=== PATIENT | male | born 1935 | race Caucasian/White ===

== ENCOUNTER 2018-09-22 08:06 | Day surgery (SDC) | payer MEDICARE ==
[~2018-09-22] VITALS: Ht 165.1 cm; Wt 63.6 kg
[2018-09-22] MEDS ORDERED: SODIUM CHLORIDE 0.9% 1,000 ML IV SCH ×2 (08:55→09:00)
[2018-09-22] MEDS ORDERED: LIDOCAINE 1%, 20ML ONE (09:05)
[2018-09-22 09:19] VITALS: BP 142/68
[2018-09-22 09:24] LABS: BASOPHILS # (AUTO) 0.02 x10^3/uL (0-0.1); BASOPHILS % (AUTO) 0 % (0-1); EOSINOPHILS # (AUTO) 0.15 x10^3/uL (0-0.4); EOSINOPHILS % (AUTO) 3 % (1-7); LYMPHOCYTES # (AUTO) 0.92 x10^3/uL (1-3.4); LYMPHOCYTES % (AUTO) 18 % (22-44); MD NO; MEAN CORPUSCULAR HEMOGLOBIN 31.8 pg (27.5-34.5); MEAN CORPUSCULAR HGB CONC 33.4 g/dL (33.2-36.2); MEAN CORPUSCULAR VOLUME 95.2 fL (81-97); MEAN PLATELET VOLUME 6.8 fL (7.4-10.4); MONOCYTES # (AUTO) 0.36 x10^3/uL (0.2-0.8); MONOCYTES % (AUTO) 7 % (2-9); NEUTROPHILS # (AUTO) 3.53 x10^3/uL (1.8-6.8); NEUTROPHILS % (AUTO) 71 % (42-75); PLATELET COUNT 186 x10^3/uL (130-400); RED BLOOD COUNT 3.72 x10^6/uL (4.38-5.82); RED CELL DISTRIBUTION WIDTH 13.9 % (9.4-14.8)
[2018-09-22] MEDS ORDERED: LEVO112T4 PO (09:28)
[2018-09-22] MEDS ORDERED: ATOR20TA37 PO (09:28)
[2018-09-22] MEDS ORDERED: ASPI-496 PO (09:28)
[2018-09-22] MEDS ORDERED: METF500T17 PO (09:28)
[2018-09-22] MEDS ORDERED: ENAL2.5T PO (09:28)
[2018-09-22] MEDS ORDERED: RIVA15TA PO (09:29)
[2018-09-22] MEDS ORDERED: PLEASE ENTER HEIGHT AND WEIGHT MC SCH (09:30)
[2018-09-22] MEDS ORDERED: PLEASE ENTER ALLERGIES MC SCH (09:30)
[2018-09-22 09:34] LABS: PROTHROMBIN TIME 10.5 Seconds (9.6-11.5)
[2018-09-22 09:35] LABS: ALANINE AMINOTRANSFERASE 26 U/L (12-78); ANION GAP 8 mmol/L (5-15); CALCIUM 8.7 mg/dL (8.5-10.1); CHLORIDE 110 mmol/L (98-107)
[2018-09-22 09:37] LABS: ALKALINE PHOSPHATASE 57 U/L (45-117); BILIRUBIN,TOTAL 0.5 mg/dL (0.2-1.0)
[2018-09-22] MEDS ORDERED: INSU100I13 SC (09:45)
[2018-09-22] MEDS ORDERED: HUMALOG SC (09:45)
[2018-09-22] MEDS ORDERED: FENTANYL PF 250 MCG/5ML ONE (09:49)
[2018-09-22] MEDS ORDERED: LIDOCAINE-MPF 2% ,5ML ONE (09:50)
[2018-09-22] MEDS ORDERED: ONDANSETRON 2MG/ML, 2ML ONE (09:50)
[2018-09-22] MEDS ORDERED: DEXAMETHASONE 4 MG/ML, 1ML ONE (09:50)
[2018-09-22] MEDS ORDERED: PROPOFOL 10 MG/ML, 20ML ONE ×2 (09:50)
[2018-09-22] MEDS ORDERED: ROCURONIUM 10MG/ML,5ML ONE (09:51)
[2018-09-22] MEDS ORDERED: SUCCINYLCHOLINE 20 MG/ML, 10ML ONE (09:51)
[2018-09-22] MEDS ORDERED: ACETAMINOPHEN 325 MG TABLET PO PRN ×2 (11:30→12:00)
[2018-09-22] MEDS ORDERED: MORPHINE SULFATE 4 MG/ML, 1ML IVPush PRN (12:00)
[2018-09-22] MEDS ORDERED: FENTANYL PF 100 MCG/2ML IV PRN (12:00)
[2018-09-22] MEDS ORDERED: LABETALOL 5MG/ML, 20ML IV PRN (12:00)
[2018-09-22] MEDS ORDERED: OXYcodone 5 MG/5 ML ORAL.SOL UDC PO PRN (12:00)
[2018-09-22] MEDS ORDERED: MIDAZOLAM 1 MG/ML, 2ML IV PRN (12:00)
[2018-09-22] MEDS ORDERED: MEPERIDINE/PF 25MG/0.5ML IVPush PRN (12:00)
[2018-09-22] MEDS ORDERED: ALBUTEROL SULFATE 2.5 MG/3 ML NPPB PRN (12:00)
[2018-09-22] MEDS ORDERED: PROMETHAZINE 12.5 MG SUPP PR PRN (12:00)
[2018-09-22] MEDS ORDERED: EPHEDRINE 50 MG/ML, 1ML IVPush PRN (12:00)
[2018-09-22] MEDS ORDERED: DIAZEPAM 5 MG/ML, 2ML IVPush PRN (12:00)
[2018-09-22] MEDS ORDERED: PROMETHAZINE 25 MG/ML, 1ML IV PRN (12:00)
[2018-09-22] MEDS ORDERED: hydrALAzine 20 MG/ML, 1ML IV PRN (12:00)
[2018-09-22] MEDS ORDERED: ONDANSETRON 2MG/ML, 2ML IV PRN (12:00)
[2018-09-22] MEDS ORDERED: HYDROmorphone 2 MG/ML, 1ML IVPush PRN (12:00)
[2018-09-22] MEDS ORDERED: ONDANSETRON ODT 8 MG PO PRN (12:00)
[2018-09-22] MEDS ORDERED: OXYcodone 5 MG/5 ML ORAL.SOL UDC ONE (12:03)
[2018-09-22] MEDS ORDERED: RIVAROXABAN 15 MG TABLET PO SCH (13:00)
[2018-09-22] MEDS ORDERED: ASPIRIN 81 MG TABLET EC PO SCH (13:00)
[2018-09-22] MEDS ORDERED: INSULIN GLARGINE 100 UNITS/ML, PEN HOMEINJ SCH (21:00)
[2018-09-22] MEDS ORDERED: metFORMIN 500 MG TABLET PO SCH (21:00)
[2018-09-22] MEDS ORDERED: ATORVASTATIN 20 MG TABLET PO SCH (21:00)
[2018-09-22] MEDS ORDERED: ENALAPRIL 2.5MG TABLET PO SCH (21:00)
[2018-09-23] MEDS ORDERED: RIVAROXABAN 15 MG TABLET PO SCH ×2 (09:00)
[2018-09-23] MEDS ORDERED: ASPIRIN 81 MG TABLET EC PO SCH (09:00)
[2018-09-23] MEDS ORDERED: LEVOTHYROXINE 112 MCG TABLET PO SCH (09:00)
== END 2018-09-22 16:35 | disposition home or self-care (01) ==
LOC: CACL 08:06 → 5SO 13:12 → CACL 16:35
PROVIDERS: ATTEND Internal Medicine Cardiovascular Disease
DX: I48.92 Unspecified atrial flutter (principal); E11.22 Type 2 diabetes mellitus with diabetic chronic kidney disease; I12.9 Hypertensive chronic kidney disease with stage 1 through stage 4 chronic kidney disease, or unspecified chronic kidney disease; N18.9 Chronic kidney disease, unspecified; E11.9 Type 2 diabetes mellitus without complications; I49.9 Cardiac arrhythmia, unspecified; I35.9 Nonrheumatic aortic valve disorder, unspecified; I10 Essential (primary) hypertension; I25.10 Atherosclerotic heart disease of native coronary artery without angina pectoris; Z79.899 Other long term (current) drug therapy; Z79.01 Long term (current) use of anticoagulants; Z79.82 Long term (current) use of aspirin; Z79.4 Long term (current) use of insulin
CPT/HCPCS: 36415; 80053; 85025; 85610; 85730; 93613; 93621; 93653; C1730; C1731; C1732; C1894; J0330; J1100; J2405; J2704; J3010; G0378

== ENCOUNTER 2020-09-03 17:18 | Emergency (ER) | payer MEDICARE ==
[~2020-09-03] VITALS: Ht 165.1 cm; Wt 71.0 kg
[~2020-09-03 17:18] MED LIST: ASPI-496 PO; ATOR20TA37 PO; ENAL2.5T8 PO; HUMALOG SC; INSU100I13 SC; LEVO112T4 PO; METF500T17 PO; RIVA15TA PO
--- NOTE | 2020-09-03 18:00 | NUR ---
PT AMBULATED TO ROOM FROM TRIAGE. PT STATED THAT HE WAS TAKING A NAP AND WOKE UP FEELING LIKE HIS HEART WAS RACING. PT HAS A HISTORY OF A FIB WITH AN ABLATION 2 YEARS AGO. PT STATED THAT HE FELT LIKE THIS OCCASIONALLY PRIOR TO HIS ABLATION, BUT THIS IS THE FIRST TIME HE HAS FELT THIS SINCE. PT DENIES ANY CP, SOB, DIZZINESS OR LIGHTHEADEDNESS.
[2020-09-03 18:11] LABS: BASOPHILS % (AUTO) 1 % (0-1); EOSINOPHILS % (AUTO) 3 % (1-7); LYMPHOCYTES % (AUTO) 25 % (22-44); MEAN CORPUSCULAR HEMOGLOBIN 32.8 pg (27.5-34.5); MEAN CORPUSCULAR HGB CONC 34.7 g/dL (33.2-36.2); MEAN PLATELET VOLUME 7.2 fL (7.4-10.4); MONOCYTES % (AUTO) 8 % (2-9); NEUTROPHILS % (AUTO) 63 % (42-75); PLATELET COUNT 138 x10^3/uL (130-400); RED BLOOD COUNT 3.37 x10^6/uL (4.38-5.82); RED CELL DISTRIBUTION WIDTH 13.1 % (9.4-14.8)
[2020-09-03 18:20] LABS: ALANINE AMINOTRANSFERASE 25 U/L (12-78); ALBUMIN 3.6 g/dL (3.4-5.0); ANION GAP 6 mmol/L (5-15); CALCIUM 8.3 mg/dL (8.5-10.1); CHLORIDE 111 mmol/L (98-107); CREATININE 1.74 mg/dL (0.7-1.3)
[2020-09-03 18:24] LABS: ALKALINE PHOSPHATASE 49 U/L (45-117); BILIRUBIN,TOTAL 0.3 mg/dL (0.2-1.0); TOTAL PROTEIN 6.6 g/dL (6.4-8.2); TROPONIN I < 0.015 ng/mL (0.000-0.045)
[2020-09-03 18:31] VITALS: BP 160/70
--- NOTE | 2020-09-03 19:19 | NUR ---
DISCHARGE INSTRUCTIONS REVIEWED WITH PT. ALL QUESTIONS ANSWERED AT THIS TIME.
== END 2020-09-03 19:23 | disposition home or self-care (01) ==
LOC: ED 19:00
DX: R00.2 Palpitations (principal); R07.9 Chest pain, unspecified; I25.10 Atherosclerotic heart disease of native coronary artery without angina pectoris; E11.9 Type 2 diabetes mellitus without complications; E78.5 Hyperlipidemia, unspecified; R94.31 Abnormal electrocardiogram [ECG] [EKG]; Z90.89 Acquired absence of other organs; Z88.2 Allergy status to sulfonamides; Z98.61 Coronary angioplasty status
CPT/HCPCS: 36415; 71045; 80053; 83735; 84443; 84484; 85025; 93005; 99285